=== PATIENT | female | born 1990 | race Hispanic/Latino ===

== ENCOUNTER 2019-05-29 06:41 | Day surgery (SDC) | payer BC ==
[2019-05-25 13:23] LABS: BASOPHILS % (AUTO) 0.7 % (0.0-5.0); EOSINOPHILS % (AUTO) 1.4 % (0.0-8.0); HEMATOCRIT 34.1 % (36-48); LYMPHOCYTES % (AUTO) 22.3 % (21.0-51.0); MEAN CORPUSCULAR HEMOGLOBIN 28.1 pg (27.0-33.0); MEAN CORPUSCULAR HGB CONC 33.5 g/dL (32.0-36.0); MEAN CORPUSCULAR VOLUME 83.9 fL (79-99); NEUTROPHILS % (AUTO) 69.6 % (40.0-77.0); PLATELET COUNT (AUTO) 325 K/uL (130-400); RED BLOOD CELL COUNT(AUTO) 4.07 MIL/uL (4.00-5.50); RED CELL DISTRIBUTION WIDTH 14.7 % (11.0-15.5)
[2019-05-25 13:35] VITALS: BP 140/85
[~2019-05-29] VITALS: Ht 167.6 cm; Wt 104.6 kg
[2019-05-29] VITALS (21 sets, daily range): BP systolic 119–159; BP diastolic 72–108
[~2019-05-29 06:41] MED LIST: LEVO175T4 PO; LIOT5 PO; NORG-1 PO
[2019-05-29] MEDS: CALDOLOR 800MG+NS 250ML 250 ML IV SCH ×2 (07:00→09:30)
[2019-05-29] MEDS ORDERED: LACTATED RINGERS 1000ML 1,000 ML IV SCH (08:00)
[2019-05-29] MEDS ORDERED: DEXAMETHASONE SOD PHOSPHATE 10MG/ML 1ML VIAL ONE (08:20)
[2019-05-29] MEDS ORDERED: LIDOCAINE PF 2% 5ML ABBOJECT ONE (08:20)
[2019-05-29] MEDS ORDERED: PROPOFOL 10 MG/ML 20ML VIAL IV ONE (08:20)
[2019-05-29] MEDS ORDERED: MIDAZOLAM HCL 1 MG/ML 2ML VIAL ONE (08:20)
[2019-05-29] MEDS ORDERED: ONDANSETRON HCL 4 MG/2 ML VIAL ONE (08:20)
[2019-05-29] MEDS ORDERED: ROCURONIUM 10MG/1ML SYR 10 MG/ML ML ONE (08:21)
[2019-05-29] MEDS ORDERED: FENTANYL CITRATE PF 50 MCG/1 ML 2ML VIAL ONE ×2 (08:21→11:21)
[2019-05-29] MEDS ORDERED: CEFAZOLIN SODIUM 1 GM VIAL ONE (08:40)
[2019-05-29] MEDS ORDERED: BUPIVACAINE/PF 0.25% 30ML VIAL IJ ONE (08:41)
[2019-05-29] MEDS ORDERED: SILVER NITRATE APPLICATOR 1 SWAB TP ONE (09:36)
[2019-05-29] MEDS ORDERED: GLYCOPYRROLATE 1 MG/5 ML SYRINGE ONE (09:41)
[2019-05-29] MEDS ORDERED: NEOSTIGMINE 5MG/5ML SYR IV ONE (09:42)
[2019-05-29] MEDS ORDERED: MEPERIDINE-PF 25 MG/ML SYG ONE ×2 (10:02→10:36)
--- NOTE | 2019-05-29 11:14 | NUR ---
NOTE INCISION LLQ ABDOMEN WITH DERMABOND INTACT, NO OOZING NOTED, OB PAD VERY SCANT PINKISH DISCHARGE NOTED. ABDOMEN SOFT.
--- NOTE | 2019-05-29 11:40 | NUR ---
PAIN LLQ ABDOMEN SCALE 8, CRYING NOTIFIED DR. GUPTA OF PT'S COMPLAINT, ORDERS TO GIVE VICODIN 5/325 MG 2 TABS PO THEN MAY BE DISCHARGED HOME. ALSO NOTIFIED AYE SAAVEDRA PRIOR. NO FURTHER ORDERS FROM ANESTHESIA.
[2019-05-29] MEDS ORDERED: HYDROCODONE/ACETAMINOPHEN 5/325 MG TAB ONE (11:48)
[2019-05-29] MEDS ORDERED: HYDROCODONE/ACETAMINOPHEN 5/325 MG TAB PO SCH (12:15)
--- NOTE | 2019-05-29 12:30 | NUR ---
DISCHARGE PT DISCHARGED VIA WHEELCHAIR WITH AND PARENTS. PT STABLE. STATED PAIN MEDICATION HELPED WITH HER PAIN. VOIDED PRIOR TO DISCHARGE. TOLERATED ORAL FLUIDS WELL. DISCHARGE INSTRUCTIONS GIVEN TO . VERBALIZED UNDERSTANDING.
== END 2019-05-29 12:30 | disposition home or self-care (01) ==
LOC: DAH 06:41
PROVIDERS: ATTEND Obstetrics & Gynecology
DX: N92.0 Excessive and frequent menstruation with regular cycle (principal); N83.11 Corpus luteum cyst of right ovary; N94.12 Deep dyspareunia; E66.01 Morbid (severe) obesity due to excess calories; G89.29 Other chronic pain; E03.9 Hypothyroidism, unspecified; K59.00 Constipation, unspecified; Z79.899 Other long term (current) drug therapy
CPT/HCPCS: 36415; 58563; 58661; 85025; 86850; 86900; 86901; 88305; A4215; A4221; A4222; A4223; A4351; A4355; A4649 ×2; A4663; A6260; C1769 ×3; G0168; J0690; J1100; J1741; J2001; J2175 ×2; J2250; J2405; J2704; J2710; J3010; J3490 ×2; J7030; J7120 ×2